=== PATIENT | male | born 1950 | race Caucasian/White ===

== ENCOUNTER → 2024-11-08 | Outpatient (CLI) | payer MEDICARE, OTHER ==
[2024-11-08 13:47] VITALS: BP 123/72; PULSE 58; RESP 16; TEMP 96.8
--- NOTE | 2024-11-08 15:35 | P.PAINPG ---
Objective - Vital Signs Vital signs: Vital Signs Temp 96.8 F L 11/08/24 13:42 Pulse 58 L 11/08/24 13:42 Resp 16 11/08/24 13:42 BP 123/72 11/08/24 13:42 Pulse Ox 98 11/08/24 13:42 FiO2 PQRS Measure Charge Sheet Mode of Arrival: Ambulatory Comment: HISTORY OF PRESENT ILLNESS: A 74 yr old male as a referral from Dr Engel presents today w severe and chronic LBP > 1 yr secondary to radiculopathy, spondylosis and facet arthropathy without myelopathy for evaluation. Pt states pain level is provoked at 10 /10 in intensity, intermittent, localized in the lumbar spine, predominantly axial, throbbing in character w occasional shooting pain towards the calves and feet. Pain is provoked by walking for periods > 10 min. Pain is alleviated by PT x 2 wks which he is currently in, medications, use of a cane, manual massage, repositioning and rest . Oswestry axial pain score at 33. PMH: OA, HTN, Angina, CVA, Hyperlipidemia PSH: Arthroplasty (2021), Bunionectomy, Cardiac Catheterization (2023), Knee Replacement (2020), Mandible Surgery () SH: Never smoker, Occ ETOH use, No illicit drug use FH: Non contributory All: See list Meds: See list incl Ibu, Tyl REVIEW OF ORGAN SYSTEMS: CONSTITUTIONAL: No fevers or chills. No recent weight loss. NEUROLOGICAL: + numbness and tingling along the distal extremities. No seizure disorders or headaches. MUSCULOSKELETAL: + pain PSYCHIATRIC: Denies current depression or suicidal thoughts. Physical Examinations : Constitutional : Cooperative , not in acute distress . Neurologic : Cranial nerve II to XII intact. No focal neurological deficits. Psychiatric : alert & oriented x 3. Matching mood & appropriate affect. Judgment & insight intact. Musculoskeletal : Cervical Spine Motor strength in the deltoid and biceps: Normal right side. Normal Left side Motor strength biceps and the wrist extensors: Normal right side . Normal left side Motor strength in the triceps muscle: Normal right side. Normal left side Deep tendon reflexes: Normal at the biceps. Normal at Brachioradialis. Normal at triceps Vertebral body tenderness to deep palpation over Cervical facet loading test: positive bilaterally Spurling test: positive bilaterally Neck distraction test: positive bilaterally Tony sign: positive bilaterally Lumbar spine Motor strength lower extremities ,thigh and legs 5/5 Right side , 5/5 Left side Deep tendon reflexes : Normal Knee Jerk. Normal Ankle Jerk Vertebral body tenderness over L5 Mar Test positive Lumbar facet Loading Test: positive Right / positive Left Range of motion of the lumbar spine Flexion 30 degrees, extension 10 degrees Straight Leg Raise test: Left/ Right positive at < 35 degrees Ryan test: positive right / positive left. Severe tenderness over the Sacroiliac joint on the Right / Left sides Gaenslen test: positive bilaterally Seated flexion test: positive bilaterally. Sacral spine : Severe tenderness over the Sacroiliac joint: right side / left side Range of motion: Flexion of the lumbar spine <60 degrees Range of motion: Extension of the lumbar spine <20 degrees Gaenslen's Test positive Ryan test: positive right side / left side Thigh Thrust Test Sacral Thrust Test Imaging: MRI non contrast of the lumbar spine from 10/12/2024 reviewed Assessment/ Plan : L3-L4 severe stenosis, lumbar spondylosis Recommendation of BURKE L5-S1 #1. Risks, benefits of procedure discussed and patient verbalized understanding. Admits to anti- coagulant use or medical history of diabetes. Protocol for discontinuation/ continuation of medications xiomara procedure discussed.All questions answered. I have spent greater than 30 minutes on patient care today. Dr Del Castillo was available by phone for the evaluation of this patient. The time was used to review the medical records including relevant urine studies and Prescription history (MAPs), review of the available imaging, evaluation and examination of the patient, coordination of care with the medical staff and if applicable referring physicians, as well as creation of the medical record - Pain Location Lower Back Non-Pharmacological Interventions: Sitting PQRS Narrative: Blood Pressure 123/72 Pain Intensity [Lower Back] 10 Scale Used Numeric (1 - 10) Hx Alcohol Use (MH) No Controlled Substance Measures - Controlled Substance Measures Is patient prescribed a controlled substance at discharge?: Yes When asked, does pt state using other controlled substances?: No If prescribed controlled substance>3 days was MAPS reviewed?: Prescribed <3 Days
== END ==
LOC: PNWHC3 13:23
PROVIDERS: ATTEND Specialist
DX: M47.816 Spondylosis without myelopathy or radiculopathy, lumbar region (principal); M48.061 Spinal stenosis, lumbar region without neurogenic claudication
CPT/HCPCS: 99202

== ENCOUNTER 2024-11-23 07:28 | Day surgery (SDC) | payer MEDICARE, OTHER ==
[2024-11-19 14:21] VITALS: BMI 30.5
[~2024-11-23 07:28] MED LIST: LACTATED RINGERS 1,000 ML IV SCH
[2024-11-23 08:05] VITALS: TEMP 97
[2024-11-23] MEDS ORDERED: methylPREDNISolone ACETATE 80 MG/ML 1 ML VIAL ONE (08:39)
[2024-11-23] MEDS ORDERED: IOPAMIDOL M300 15ML VIAL ONE (08:39)
--- NOTE | 2024-11-23 09:01 | FL ---
EXAMINATION TYPE: FL guided pain mgmt statistic DATE OF EXAM: 11/23/2024 CLINICAL INDICATION: Male, 74 years old with history of Lumbar Epid Inj; PHH, pain TECHNIQUE: Fluoroscopy. COMPARISON: None. FINDINGS: Fluoroscopic guidance was provided during pain relief procedure performed by Dr. Barbosa . A total of 8.6 seconds of fluoroscopic time was utilized during the procedure and one image was acqui red. Image acquired shows needle localization at the lumbosacral junction. Degeneration changes of the visualized joints. Total DAP: 0.56916 mGym2 IMPRESSION: As Above. [facility], , 11/23/2024 8:58 AM
--- NOTE | 2024-11-23 09:12 | P.PCN ---
Description of Procedure: PREOPERATIVE DIAGNOSIS: 1- Lumbar Degenerative Disc Diseases 2-Lumbar spondylosis with Facet arthropathy without myelopathy. 3-lumbar spinal stenosis POSTOPERATIVE DIAGNOSIS: 1-lumbar degenerative disc disease. 2-lumbar spondylosis with facet arthropathy without myelopathy. 3-lumbar spinal stenosis. PROCEDURE Injection of radio contrast material into L5-S1 interspace, interpretation of epidurogram, injection of steroid at L5-S1 epidural space under fluoroscopic guidance. ANESTHESIA: Lidocaine 1% subcutaneously. In OR continuous pulse ox, EKG, blood pressure and verbal communication was maintained with the patient. EBL: Minimal PROCEDURE INDICATION: Before the procedure were discussed with the patient detailed procedure, alternatives, complications including infection, bleeding, nerve damage, paralysis all of which could be permanent. Patient understands and all questions were answered. PROCEDURE DESCRIPTION : After getting consent, patient in OR in prone position. Back was prepped with chlorhexidine and draped in sterile fashion. After injecting 10 mL of 1% lidocaine subcutaneously, a 20-gauge Tuohy needle was introduced at L5-S1 interspace with loss of resistance technique using a syringe filled with air. Negative CSF, negative blood, negative paresthesia. Needle position was confirmed with AP and lateral view of the fluoroscope. After repeat negative aspiration 2 mL of Omnipaque 200 water soluble contrast was injected. Contrast was noted in the epidural space. No contrast was noted into intrathecal or intravascular space. After repeat negative aspiration 6 mL solution was injected intermittently which consists of 5 mL of preservative-free normal saline mixed with 1 mL of 80 mg Depo-Medrol. Needle was withdrawn intact. Skin was cleansed and Band-Aids was applied. DISPOSITION / PLANS: The patient tolerated the procedure well. No complication. The patient was placed in a supine position and transferred to the recovery area in a stable condition for observation. There was no evidence of lower extremity motor or sensory deficit after the procedure. Patient was discharged from the recovery room after meeting discharge criteria. Home discharge instructions were given to the patient by the staff. The patient was reexamined prior to discharge. The patient will schedule a follow up in the clinic in 2-4 weeks.
[2024-11-23 09:24] VITALS: BP 103/66; PULSE 57; RESP 19
== END 2024-11-23 09:31 | disposition home or self-care (01) ==
LOC: ORPAIN 07:28
PROVIDERS: ATTEND Pain Medicine Interventional Pain Medicine
DX: M47.816 Spondylosis without myelopathy or radiculopathy, lumbar region (principal); M48.061 Spinal stenosis, lumbar region without neurogenic claudication; M51.369 Other intervertebral disc degeneration, lumbar region without mention of lumbar back pain or lower extremity pain; Z79.02 Long term (current) use of antithrombotics/antiplatelets
CPT/HCPCS: 62323; Q9967; J1010

== ENCOUNTER → 2024-12-08 | Outpatient (CLI) | payer MEDICARE, OTHER ==
[2024-12-08 13:56] VITALS: BP 138/84; PULSE 56; RESP 16; TEMP 97.3
--- NOTE | 2024-12-08 14:59 | P.PAINPG ---
PQRS Measure Charge Sheet Comment: HISTORY OF PRESENT ILLNESS: A 74 yr old male w at side presents today w severe and chronic LBP > 1 yr secondary to radiculopathy, spondylosis and facet arthropathy without myelopathy for evaluation s/p BURKE L5-S1 #1. Pt states he experienced 60% pain relief x 2 wks s/p procedure. Pt states pain level is provoked at 5-6 /10 in intensity, intermittent, localized in the lumbar spine, predominantly axial, throbbing in character w occasional shooting pain towards the calves and feet. Pain is provoked by walking for periods > 10 min. Pain is alleviated by PT x 5 wks which he is currently in, medications, use of a cane, manual massage, repositioning and rest . Interventional procedures include BURKE L5-S1 x1 Medications include Ibu, Tyl REVIEW OF ORGAN SYSTEMS: CONSTITUTIONAL: No fevers or chills. No recent weight loss. NEUROLOGICAL: + numbness and tingling along the distal extremities. No seizure disorders or headaches. MUSCULOSKELETAL: + pain PSYCHIATRIC: Denies current depression or suicidal thoughts. Physical Examinations : Constitutional : Cooperative , not in acute distress . Neurologic : Cranial nerve II to XII intact. No focal neurological deficits. Psychiatric : alert & oriented x 3. Matching mood & appropriate affect. Judgment & insight intact. Musculoskeletal : Cervical Spine Motor strength in the deltoid and biceps: Normal right side. Normal Left side Motor strength biceps and the wrist extensors: Normal right side . Normal left side Motor strength in the triceps muscle: Normal right side. Normal left side Deep tendon reflexes: Normal at the biceps. Normal at Brachioradialis. Normal at triceps Vertebral body tenderness to deep palpation over Cervical facet loading test: positive bilaterally Spurling test: positive bilaterally Neck distraction test: positive bilaterally Tony sign: positive bilaterally Lumbar spine Motor strength lower extremities ,thigh and legs 5/5 Right side , 5/5 Left side Deep tendon reflexes : Normal Knee Jerk. Normal Ankle Jerk Vertebral body tenderness over L5 Mar Test positive Lumbar facet Loading Test: positive Right / positive Left Range of motion of the lumbar spine Flexion 30 degrees, extension 10 degrees Straight Leg Raise test: Left/ Right positive at < 35 degrees Ryan test: positive right / positive left. Severe tenderness over the Sacroiliac joint on the Right / Left sides Gaenslen test: positive bilaterally Seated flexion test: positive bilaterally. Sacral spine : Severe tenderness over the Sacroiliac joint: right side / left side Range of motion: Flexion of the lumbar spine <60 degrees Range of motion: Extension of the lumbar spine <20 degrees Gaenslen's Test positive Ryan test: positive right side / left side Thigh Thrust Test Sacral Thrust Test Imaging: MRI non contrast of the lumbar spine from 10/12/2024 reviewed Assessment/ Plan : L3-L4 severe stenosis, lumbar spondylosis Recommendation of BURKE L5-S1 #2. Risks, benefits of procedure discussed and patient verbalized understanding. Admits to anti- coagulant use or medical history of diabetes. Protocol for discontinuation/ continuation of medications xiomara procedure discussed. All questions answered. I have spent greater than 30 minutes on patient care today. Dr Del Castillo was available by phone for the evaluation of this patient. The time was used to review the medical records including relevant urine studies and Prescription history (MAPs), review of the available imaging, evaluation and examination of the patient, coordination of care with the medical staff and if applicable referring physicians, as well as creation of the medical record PQRS Narrative: Hx Alcohol Use (MH) No Home Medications: Ambulatory Orders Atorvastatin [Lipitor] 40 mg PO HS 11/19/24 Cholecalciferol (Vitamin D3) [Vitamin D3 (125 MCG = 5,000 IU)] 125 mcg PO DAILY 11/19/24 Clopidogrel [Plavix] 75 mg PO DAILY 11/19/24 Ezetimibe [Zetia] 10 mg PO DAILY 11/19/24 Glucosamine Sulfate 1 dose PO DAILY 11/19/24 Isosorbide Mononitrate ER [Imdur] 30 mg PO DAILY 11/19/24 Magnesium 1 dose PO DAILY 11/19/24 Metoprolol Tartrate [Lopressor] 50 mg PO BID 11/19/24 Multivitamins, Thera [Multivitamin (formulary)] 1 tab PO DAILY 11/19/24 [place]-3/Dha/Epa/Fish Oil [Fish Oil 1,000 mg Softgel] 1 each PO DAILY 11/19/24 Ranolazine [Ranexa] 1,000 mg PO Q12HR 11/19/24 diazePAM [Valium] 5 mg PO DIRECTED 11/19/24 Controlled Substance Measures - Controlled Substance Measures Is patient prescribed a controlled substance at discharge?: No
== END ==
LOC: PNWHC3 13:43
PROVIDERS: ATTEND Specialist
DX: M47.816 Spondylosis without myelopathy or radiculopathy, lumbar region (principal); M48.061 Spinal stenosis, lumbar region without neurogenic claudication
CPT/HCPCS: 99211

== ENCOUNTER 2024-12-21 12:56 | Day surgery (SDC) | payer MEDICARE, OTHER ==
[2024-12-17 16:13] VITALS: BMI 31.3
[2024-12-21] MEDS ORDERED: LACTATED RINGERS 1,000 ML IV SCH (13:09)
[2024-12-21 13:15] VITALS: RESP 16; TEMP 98
[2024-12-21] MEDS: IV FLUID CONTINUATION 1,000 ML IV ONE (13:46)
[2024-12-21] MEDS ORDERED: IOPAMIDOL M200 10 ML VIAL ONE (13:51)
[2024-12-21] MEDS ORDERED: methylPREDNISolone ACETATE 40 MG/ML 1 ML VIAL ONE (13:51)
--- NOTE | 2024-12-21 13:58 | P.PCN ---
Date of Procedure: 12/21/24 Procedure(s) Performed: PREOPERATIVE DIAGNOSIS: 1- Lumbar spinal stenosis. 2-Lumbar spondylosis with Facet arthropathy without myelopathy. 3-lumbar radiculopathy POSTOPERATIVE DIAGNOSIS: Same as preop diagnosis. PROCEDURE 1. Lumbar epidural steroid injection under fluoroscopic guidance at the L5-S1 level. (Fluoroscopy imaging was available in radiology department) 2. Lumbar epidurogram. ANESTHESIA: Local infiltration for skin and subcu tissue with lidocaine 1% 3 mL EBL: Minimal PROCEDURE INDICATION: The patient with low back pain and radiculitis symptoms unresponsive to conservative treatment. Fluoroscopy was used to optimize visualization of the needle placement and to maximize safety. PROCEDURE DESCRIPTION / TECHNIQUE: The patient was seen and identified in the preoperative area. Risks, benefits, complications including but not limited to infections ,bleeding ,allergic reaction to the medications ,nerve damage and not complete pain releife , and alternatives were discussed with the patient. The patient agreed to proceed with the procedure and signed the consent. IV was started, and vital signs were stable. Patient was taken to the OR and time out was completed. The patient was placed in the prone position on procedure table and a pillow was placed under the abdomen to reduce lumbar lordosis. The lumbosacral area was prepped and draped in the usual sterile fashion.ere closely monitored during the procedure. Vital signs was monitered during the entire procedure. Using anterior-posterior fluoroscopy, the L5-S1 interlaminar space was identified and the skin over this site was marked and then infiltrated with 1% lidocaine subcutaneously. Subsequently, a 20-gauge Tuohy epidural needle was inserted and advanced toward the epidural space using the ``Loss of resistance technique and guided by AP and lateral fluoroscopy. The correct needle position in the epidural space was verified with the injection of 2 mL of the water soluble contrast dye Isovue 200 contrast and observing an excellent epidurogram with the epidural spread of the dye, after negative aspiration for blood and CSF and in the absence of paresthesias. Again after negative aspiration, a 6 ml mixture containing 40 mg of Depo-medrol ( Preservetive Free ), and 2 ml of pres ervative free Normal Saline, and 2 ml of preservative free lidocaine 1% solution was injected and a washout of epidurogram was seen. Needle was withdrawn intact, skin was cleansed, and bandages were applied. COMPLICATIONS: None DISPOSITION / PLANS: The patient was placed in a supine position and transferred to the recovery area in a stable condition for observation. There was no evidence of lower extremity motor or sensory deficit after the procedure. Patient was discharged from the recovery room after meeting discharge criteria. Home discharge instructions were given to the patient by the staff. The patient was reexamined prior to discharge. The patient will schedule a follow up in the clinic in 2-4 weeks. Pateints take Plavix ,the last does taken more than 7 days ago.
--- NOTE | 2024-12-21 14:12 | FL ---
Fluoroscopy INDICATION: Pain FINDINGS: Fluoroscopy time: 3.9 seconds. Total dose area product (DAP) in uGy*m?, mGy*cm? (or similar): 0.85139 Images obtained: 2. Images document Needle directed to the lower lumbar region IMPRESSION: 1. Documentation of fluoroscopy. [facility], , 12/21/2024 2:10 PM
[2024-12-21 14:29] VITALS: BP 133/76; PULSE 58
== END 2024-12-21 14:30 | disposition home or self-care (01) ==
LOC: ORPAIN 12:56
PROVIDERS: ATTEND Specialist
DX: M48.061 Spinal stenosis, lumbar region without neurogenic claudication (principal); M47.26 Other spondylosis with radiculopathy, lumbar region
CPT/HCPCS: 62323; Q9966; J1010

== ENCOUNTER → 2025-01-12 | Outpatient (CLI) | payer MEDICARE, OTHER ==
[2025-01-12 13:29] VITALS: BP 118/70; PULSE 58; RESP 18; TEMP 97.6
--- NOTE | 2025-01-12 16:55 | P.PAINPG ---
Objective - Vital Signs Vital signs: Vital Signs Temp 97.6 F 01/12/25 13:25 Pulse 58 L 01/12/25 13:25 Resp 18 01/12/25 13:25 BP 118/70 01/12/25 13:25 Pulse Ox 97 01/12/25 13:25 FiO2 Intake & Output 01/11/25 01/12/25 01/12/25 18:59 06:59 18:59 Weight 92.986 kg PQRS Measure Charge Sheet Mode of Arrival: Ambulatory Comment: HISTORY OF PRESENT ILLNESS: A 74 yr old male w at side presents today w severe and chronic LBP > 1 yr secondary to radiculopathy, spondylosis and facet arthropathy without myelopathy for evaluation s/p BURKE L5-S1 #2. Pt states he experienced 50% pain relief x 2 wks s/p procedure. Pt states pain level is provoked at 5-6 /10 in intensity, intermittent, localized in the lumbar spine, predominantly axial, throbbing in character w occasional shooting pain towards the calves and feet. Pain is provoked by walking for periods > 10 min. Pain is alleviated by PT x 5 wks which he is currently in, medications, use of a cane, manual massage, repositioning and rest . Interventional procedures include BURKE L5-S1 x2 Medications include Ibu, Tyl REVIEW OF ORGAN SYSTEMS: CONSTITUTIONAL: No fevers or chills. No recent weight loss. NEUROLOGICAL: + numbness and tingling along the distal extremities. No seizure disorders or headaches. MUSCULOSKELETAL: + pain PSYCHIATRIC: Denies current depression or suicidal thoughts. Physical Examinations : Constitutional : Cooperative , not in acute distress . Neurologic : Cranial nerve II to XII intact. No focal neurological deficits. Psychiatric : alert & oriented x 3. Matching mood & appropriate affect. Judgment & insight intact. Musculoskeletal : Cervical Spine Motor strength in the deltoid and biceps: Normal right side. Normal Left side Motor strength biceps and the wrist extensors: Normal right side . Normal left side Motor strength in the triceps muscle: Normal right side. Normal left side Deep tendon reflexes: Normal at the biceps. Normal at Brachioradialis. Normal at triceps Vertebral body tenderness to deep palpation over Cervical facet loading test: positive bilaterally Spurling test: positive bilaterally Neck distraction test: positive bilaterally Tony sign: positive bilaterally Lumbar spine Motor strength lower extremities ,thigh and legs 5/5 Right side , 5/5 Left side Deep tendon reflexes : Normal Knee Jerk. Normal Ankle Jerk Vertebral body tenderness over L5 Mar Test positive Lumbar facet Loading Test: positive Right / positive Left Range of motion of the lumbar spine Flexion 30 degrees, extension 10 degrees Straight Leg Raise test: Left/ Right positive at < 35 degrees Ryan test: positive right / positive left. Severe tenderness over the Sacroiliac joint on the Right / Left sides Gaenslen test: positive bilaterally Seated flexion test: positive bilaterally. Sacral spine : Severe tenderness over the Sacroiliac joint: right side / left side Range of motion: Flexion of the lumbar spine <60 degrees Range of motion: Extension of the lumbar spine <20 degrees Gaenslen's Test positive Ryan test: positive right side / left side Thigh Thrust Test Sacral Thrust Test Imaging: MRI non contrast of the lumbar spine from 10/12/2024 reviewed Assessment/ Plan : L3-L4 severe stenosis, lumbar spondylosis Recommendation of PT integrated w therapeutic massage M54.16. All questions answered. I have spent greater than 30 minutes on patient care today. Dr Del Castillo was available by phone for the evaluation of this patient. The time was used to review the medical records including relevant urine studies and Prescription history (MAPs), review of the available imaging, evaluation and examination of the patient, coordination of care with the medical staff and if applicable referring physicians, as well as creation of the medical record PQRS Narrative: Blood Pressure 118/70 Pain Intensity [Lower Back] 8 Scale Used Numeric (1 - 10) Hx Alcohol Use (MH) No Home Medications: Ambulatory Orders Atorvastatin [Lipitor] 40 mg PO HS 11/19/24 Cholecalciferol (Vitamin D3) [Vitamin D3 (125 MCG = 5,000 IU)] 125 mcg PO DAILY 11/19/24 Clopidogrel [Plavix] 75 mg PO DAILY 11/19/24 Ezetimibe [Zetia] 10 mg PO DAILY 11/19/24 Glucosamine Sulfate 1 dose PO DAILY 11/19/24 Isosorbide Mononitrate ER [Imdur] 30 mg PO DAILY 11/19/24 Magnesium 1 dose PO DAILY 11/19/24 Metoprolol Tartrate [Lopressor] 50 mg PO BID 11/19/24 Multivitamins, Thera [Multivitamin (formulary)] 1 tab PO DAILY 11/19/24 [place]-3/Dha/Epa/Fish Oil [Fish Oil 1,000 mg Softgel] 1 each PO DAILY 11/19/24 Ranolazine [Ranexa] 1,000 mg PO Q12HR 11/19/24 diazePAM [Valium] 5 mg PO DIRECTED 11/19/24 Controlled Substance Measures - Controlled Substance Measures Is patient prescribed a controlled substance at discharge?: No
== END ==
LOC: PNWHC3 13:10
PROVIDERS: ATTEND Specialist
DX: M47.26 Other spondylosis with radiculopathy, lumbar region (principal); M48.061 Spinal stenosis, lumbar region without neurogenic claudication
CPT/HCPCS: 99212